=== PATIENT | female | born 1975 | race African-American/Black ===

== ENCOUNTER 2017-08-29 06:30 | Emergency (ER) | payer SELFPAY ==
[~2017-08-29] VITALS: Ht 162.6 cm; Wt 69.0 kg
[~2017-08-29 06:30] MED LIST: PREN1TAB49
[2017-08-29 07:58] LABS: BASOPHILS % 0.8 % (0.0-2.0); EOSINOPHILS % 0.9 % (0.0-5.0); HEMATOCRIT. 36.6 % (36.0-48.0); HEMOGLOBIN. 12.7 g/dL (12.0-16.0); MEAN CORPUSCULAR HEMOGLOBIN 35.6 pg (28.0-32.0); MEAN CORPUSCULAR VOLUME 102.5 fL (81.0-99.0); MEAN PLATELET VOLUME 7.8 fl (7.4-10.4); MONOCYTES % 12.5 % (2.0-8.0); NEUTROPHILS % 51.8 % (40.0-76.0); PLATELET 240 x1000/uL (130-400); RED BLOOD CELL COUNT 3.57 mill/uL (4.2-5.4); RED CELL DISTRIBUTION WIDTH 15.8 % (11.6-14.6)
[2017-08-29 08:06] LABS: PROTHROMBIN TIME 10.2 sec (9.4-11.6)
[2017-08-29 08:12] LABS: CARBON DIOXIDE 26 mEq/L (21-32); CHLORIDE 107 mEq/L (98-107)
[2017-08-29] MEDS ORDERED: IBUPROFEN 600MG TABLET PO ONE (08:15)
[2017-08-29 08:19] LABS: HCG SCREEN NEGATIVE
[2017-08-29 08:31] LABS: KETONES URINE NEGATIVE (NEGATIVE); LEUKOCYTE ESTERASE URINE NEGATIVE (NEGATIVE); NITRITE URINE NEGATIVE (NEGATIVE); OCCULT BLOOD URINE NEGATIVE (NEGATIVE); PROTEIN URINE NEGATIVE (NEGATIVE); SPECIFIC GRAVITY URINE 1.008 (1.005-1.030); UROBILINOGEN URINE 0.2 E.U./dL (0.2-1.0)
[2017-08-29 08:32] LABS: CLARITY URINE CLEAR (CLEAR); COLOR URINE YELLOW (YELLOW)
[2017-08-29] MEDS ORDERED: HYDROCODONE/ACETAMINOPHEN 5/325MG TABLET PO ONE (08:45)
[2017-08-29] MEDS ORDERED: IOHEXOL-350 100 ML BOTTLE ONE (09:15)
[2017-08-29] MEDS ORDERED: MORPHINE SULFATE 4 MG/ML CPJ (NOT FOR IM USE) IV ONE (10:30)
[2017-08-29 12:14] VITALS: BP 129/72
[2017-08-29] MEDS ORDERED: IOHEXOL-300 100 ML BOTTLE ONE (12:36)
== END 2017-08-29 12:15 | disposition home or self-care (01) ==
LOC: ER 08:00
DX: S16.1XXA Strain of muscle, fascia and tendon at neck level, initial encounter (principal); S20.219A Contusion of unspecified front wall of thorax, initial encounter; F17.200 Nicotine dependence, unspecified, uncomplicated; V49.9XXA Car occupant (driver) (passenger) injured in unspecified traffic accident, initial encounter; Y93.89 Activity, other specified; Y99.8 Other external cause status; Y92.410 Unspecified street and highway as the place of occurrence of the external cause; Z98.890 Other specified postprocedural states
CPT/HCPCS: 36415; 70490; 71010; 71260; 80053; 81003; 84703; 85025; 85610; 86850; 86900; 86901; 96374; 99285; J2270; Q9967; Z7610

== ENCOUNTER 2019-01-21 00:22 | Emergency (ER) | payer MEDICAID ==
[~2019-01-21] VITALS: Ht 162.6 cm; Wt 91.0 kg
[2019-01-21 02:01] VITALS: BP 120/62
== END 2019-01-21 02:31 | disposition home or self-care (01) ==
LOC: ER 00:22
DX: L21.9 Seborrheic dermatitis, unspecified (principal); L85.8 Other specified epidermal thickening; F17.200 Nicotine dependence, unspecified, uncomplicated; Z90.710 Acquired absence of both cervix and uterus; Z79.899 Other long term (current) drug therapy
CPT/HCPCS: 99282

== ENCOUNTER 2019-05-05 23:29 | Emergency (ER) | payer MEDICAID ==
[~2019-05-05] VITALS: Ht 165.1 cm; Wt 73.0 kg
[2019-05-06 02:10] VITALS: BP 145/79
== END 2019-05-06 02:28 | disposition home or self-care (01) ==
LOC: ER 23:55
DX: R21 Rash and other nonspecific skin eruption (principal); F99 Mental disorder, not otherwise specified; Z90.710 Acquired absence of both cervix and uterus
CPT/HCPCS: 99283

== ENCOUNTER 2021-07-02 20:21 | Emergency (ER) | payer MEDICAID ==
[~2021-07-02] VITALS: Ht 162.6 cm; Wt 73.0 kg
[2021-07-02] MEDS ORDERED: ACETAMINOPHEN 500MG TABLET PO STA (22:41)
[2021-07-02] MEDS ORDERED: SODIUM CHLORIDE 0.9% 1,000 ML IV ONE (22:45)
[2021-07-02 23:38] LABS: BASOPHILS % 0.4 % (0.0-2.0); EOSINOPHILS % 0.7 % (0.0-5.0); HEMATOCRIT. 35.8 % (36.0-48.0); HEMOGLOBIN. 12.2 g/dL (12.0-16.0); LYMPHOCYTES % 14.3 % (20.0-50.0); MEAN CORPUSCULAR VOLUME 96.7 fL (81.0-99.0); MEAN PLATELET VOLUME 8.3 fl (7.4-10.4); MONOCYTES % 9.6 % (2.0-8.0); PLATELET 189 x1000/uL (130-400); RED CELL DISTRIBUTION WIDTH 13.9 % (11.6-14.6)
[2021-07-02 23:45] LABS: CHLORIDE 101 mEq/L (98-107)
[2021-07-03] MEDS ORDERED: ERYT1OIN6 EACHEYE (01:39)
[2021-07-03] MEDS ORDERED: IBUP-2028 MT (01:39)
[2021-07-03 02:30] VITALS: BP 119/73
[2021-07-03] MEDS ORDERED: IOHEXOL-300 100 ML BOTTLE ONE (05:38)
== END 2021-07-03 03:07 | disposition home or self-care (01) ==
LOC: ER 20:21
DX: S20.219A Contusion of unspecified front wall of thorax, initial encounter (principal); S30.0XXA Contusion of lower back and pelvis, initial encounter; H10.9 Unspecified conjunctivitis; B20 Human immunodeficiency virus [HIV] disease; Y08.89XA Assault by other specified means, initial encounter; Y93.9 Activity, unspecified; Y92.9 Unspecified place or not applicable; Z90.710 Acquired absence of both cervix and uterus
CPT/HCPCS: 36415; 71045; 71260; 74177; 80053; 81025; 85025; 93005; 99285; J7030; Q9967